=== PATIENT | female | born 1995 | race African-American/Black ===

== ENCOUNTER 2025-08-18 11:00 | Emergency (ER) | payer MEDICAID ==
[~2025-08-18] VITALS: Ht 167.6 cm; Wt 70.0 kg
[~2025-08-18 11:00] MED LIST: PNV1TABL50 PO
[2025-08-18 11:06] VITALS: BP 112/60; TEMP 37.1; O2SAT 98
[2025-08-18 11:09] VITALS: PULSE 122; RESP 18
[2025-08-18 12:58] LABS: BASOPHILS % 0.1 % (0.0-2.0); EOSINOPHILS % 3.9 % (0.0-5.0); HEMATOCRIT. 37.5 % (36.0-48.0); HEMOGLOBIN. 12.3 g/dL (12.0-16.0); LYMPHOCYTES % 15.5 % (20.0-50.0); MEAN PLATELET VOLUME 8.7 fl (7.4-10.4); MONOCYTES % 8.3 % (2.0-8.0); NEUTROPHILS % 72.2 % (40.0-76.0); PLATELET 184 x1000/uL (130-400); RED BLOOD CELL COUNT 4.40 mill/uL (4.2-5.4); RED CELL DISTRIBUTION WIDTH 13.7 % (11.6-14.6)
[2025-08-18 13:09] LABS: CREATININE 0.7 mg/dL (0.6-1.0); UREA NITROGEN BLOOD 8 mg/dL (9-23)
[2025-08-18 13:11] LABS: ASPARTATE AMINOTRANSFERASE 67 IU/L (<34); BILIRUBIN DIRECT 0.1 mg/dL (<=3.0); BILIRUBIN TOTAL 0.5 mg/dL (0.1-1.0); PROTEIN TOTAL 7.0 g/dL (6.0-8.3)
[2025-08-18 13:24] LABS: HCG SCREEN NEGATIVE
[2025-08-18 14:33] LABS: CLARITY URINE CLOUDY (CLEAR); COLOR URINE YELLOW (YELLOW); GLUCOSE URINE NEGATIVE (NEGATIVE); KETONES URINE NEGATIVE (NEGATIVE); LEUKOCYTE ESTERASE URINE 3+ (NEGATIVE); NITRITE URINE POSITIVE (NEGATIVE); OCCULT BLOOD URINE NEGATIVE (NEGATIVE); PH URINE 7.0 (4.5-8.0); PROTEIN URINE TRACE (NEGATIVE); SPECIFIC GRAVITY URINE 1.014 (1.005-1.030); UROBILINOGEN URINE 0.2 E.U./dL (0.2-1.0)
[2025-08-18 15:24] VITALS: PULSE 75; RESP 20; O2SAT 100
[2025-08-18 16:23] LABS: RBC URINE NONE SEEN /hpf (0-2); SQUAMOUS EPITHELIAL CELL URINE 2+ /lpf (RARE/1+); WBC URINE 25-50 /hpf (0-2)
[2025-08-18 16:24] LABS: BACTERIA URINE 2+; MUCUS URINE TRACE /lpf (< = 2+)
[2025-08-18] MEDS ORDERED: CEFP200T13 MT (16:34)
== END 2025-08-18 17:07 | disposition home or self-care (01) ==
LOC: ER 11:39
DX: N12 Tubulo-interstitial nephritis, not specified as acute or chronic (principal)
CPT/HCPCS: 36415; 74176; 80048; 80076; 81003; 81025; 84703; 85025; 87077; 87186; 99284